=== PATIENT | female | born 1970 | race African-American/Black ===

== ENCOUNTER 2016-08-22 23:50 | Observation (INO) | payer BC ==
--- NOTE | ~2016-08-22 | HP ---
History And Physical [place] [address] [facility] [place]. [address] NAME: CHUY ALMONTE : 72 STATUS : ADM Deepak PAT#: [id number] AGE: 46 ADM/REG DATE : 08/22/16 MR#: [id number] REPORT SERV DATE: 08/23/16 DICTATED BY: MIRELA PATHAK DATE: 08/23/16 REPORT STATUS : Draft TRANSCRIBED BY: MODCandace DATE: 08/23/16 DATE OF ADMISSION: 08/22/2016 CHIEF COMPLAINT: Chest pain and dizziness. HISTORY OF PRESENT ILLNESS: A very pleasant 46-year-old black female with no known history of CAD, states that over the last couple of days, she has experienced some nagging left-arm pain on 08/22/2016. She felt "off" after having eaten breakfast at the [employer] that included three cups of coffee, a cheese steak [place] melt and hash browns. She did not feel herself most of the day. She experienced some dizziness and then, some chest pain on and off described as a tightness that radiated towards her left shoulder and down her left arm. She reports some associated nausea, dizziness, and belching. Denies shortness of breath or diaphoresis. The chest pain at its most intense was rated at 7/10. At the time of interview in the [facility], she is pain free. She states the episodes lasted seconds in duration, but would return, which were concerning to family and friends who insisted that she go to the emergency room for further evaluation. There is no clear pattern in her discomfort, no exertional component. She reports having had baked beans potatoes and riblets for dinner. Last night, her blood pressure checked by a friend was 160/90, which was concerning for her. The patient denies any personal history of myocardial infarction, stroke, DVT, or pulmonary embolus. Of note, two sons with cardiomyopathy followed at [facility]. The patient denies any recent fever or chills. No palpitations. No syncopal episodes. Denies PND or orthopnea. Sleeps on two pillows and consumes 6, 8-12 ounce cups of coffee per week. PAST MEDICAL HISTORY: 1. AL with followup with PCP on 08/29/2016. 2. Denies hypertension, dyslipidemia or diabetes. 3. A history of epilepsy with no recurrence since 2008. Previously on Dilantin. 4. Two sons with cardiomyopathy followed at [facility]. PAST SURGICAL HISTORY: 1. Right knee surgery x2, most recently March 2016. 2. . SOCIAL HISTORY: She is , with six children, unemployed. Does not have an exercise routine, although she recently completed physical therapy three times weekly at [facility] in June 2016. Denies tobacco or illicits. Occasionally consumes alcohol. FAMILY HISTORY: No embolic events reported in first-degree relatives. Mother with diabetes and dyslipidemia, alive at 62. Maternal grandmother with a stroke in her 70s, heart attack at 72, with CAD and stents in her 60s, alive at 78. REVIEW OF SYSTEMS: History And Physical [address] [address] NAME: CHUY ALMONTE : 72 STATUS : ADM Deepak PAT#: [id number] AGE: 46 ADM/REG DATE : 08/22/16 MR#: [id number] REPORT SERV DATE: 08/23/16 DICTATED BY: MIRELA PATHAK DATE: 08/23/16 REPORT STATUS : Draft TRANSCRIBED BY: ISH DATE: 08/23/16 A 14-point review of systems was performed significant for HPI including snores per report, with no formal sleep study. Otherwise, complete review of systems obtained and negative. ALLERGIES: ALLERGY TO PENICILLIN. HOME MEDICINES: ProAir p.r.n. and Motrin 800 mg three times daily, but has not needed recently. PHYSICAL EXAMINATION: BLOOD PRESSURE: 120/63, PULSE: 65, RESPIRATORY RATE: 18, TEMPERATURE: 98.5, O2 saturation 100% on room air. HEIGHT: 5 feet 2 inches, WEIGHT: No weight provided. GENERAL: Cooperative, in no apparent distress. HEENT: Pupils 2 mm, sclera nonicteric. Nares patent. Moist mucous membranes. No xanthelasma. NECK: Trachea midline. No thyromegaly. No JVD. No bruits. LYMPH: No cervical lymphadenopathy. No supraclavicular lymphadenopathy. RESPIRATORY: Unlabored respirations. Breath sounds clear bilaterally to posterior auscultation. No wheezes or rhonchi. CARDIOVASCULAR: Regular rate. No murmur, rub or gallop appreciated. Extremities, trace ankle edema. Pulses 2+ bilaterally. ABDOMEN: Soft, nontender, nondistended, normal bowel sounds auscultated throughout. No organomegaly. SKIN: Warm, dry extremities. No pallor or cyanosis. PSYCHIATRIC: Appropriate affect. Alert, oriented x3. LABORATORY DATA: Troponin less than 0.02 twice. Potassium 3.7, BUN 16, creatinine 1.01, glucose 107, magnesium 2.3. WBC is 6.0, hemoglobin 8.8, hematocrit 28.0, platelet count 259,000. D-dimer less than 0.27. EKG, sinus arrhythmia. ASSESSMENT AND PLAN: 1. Atypical chest pain in patient with a few if any risk factors. We will proceed with MPI today for risk stratification. The patient has been observed in the [facility] overnight to rule out myocardial infarction with serial enzymes and serial EKGs. N.p.o. for MPI today. The patient will be discharged home if low risk, no ischemia. If anything suggestive of ischemia, Cardiology referral will be initiated. Otherwise, the patient will be asked to follow up her PCP on 08/29/2016 as already scheduled. 2. Dizziness. Check echo. Check TSH. Orthostatics within normal limits. Two sons with cardiomyopathy. 3. Anemia. It has been suggested for the patient to take an iron supplement by previous PCP. Recently, had a lab work drawn at current PCP, Dr. Neumann's office. Has a followup scheduled for 08/29/2016. The patient has been instructed to keep that appointment. CLARE/ISH Mirela History And Physical [address] [address] NAME: CHUY ALMONTE : 72 STATUS : ADM Deepak PAT#: [id number] AGE: 46 ADM/REG DATE : 08/22/16 MR#: [id number] REPORT SERV DATE: 08/23/16 DICTATED BY: MIRELA PATHAK DATE: 08/23/16 REPORT STATUS : Draft TRANSCRIBED BY: MODL DATE: 08/23/16 DANYEL Pathak, VIDEO JOURNALIST-BC / [id number] CC: Mirela Pathak, MSN, VIDEO JOURNALIST-BC Jovana Villegas
[2016-08-22 23:24] LABS: BASOPHILS 0.3 %; BASOPHILS ABSOLUTE 0.02 10/3/uL (0.0-0.16); EOSINOPHILS 1.7 %; HEMOGLOBIN 8.8 g/dL (12.0-16.0); LYMPHOCYTES 48.4 %; LYMPHOCYTES ABSOLUTE 2.91 10/3/uL (0.67-4.30); MEAN CORPUS HGB CONC 31.4 g/dL (32.0-36.0); MEAN CORPUSCULAR HEMOGLOB 22.8 pg (26.0-34.0); MEAN PLATELET VOLUME 9.7 fL (9.2-13.0); MONOCYTES 5.8 %; MONOCYTES ABSOLUTE 0.35 10/3/uL (0.21-1.20); NEUTROPHILS 43.8 %; NEUTROPHILS ABSOLUTE 2.63 10/3/uL (2.02-8.40); PLATELET COUNT 259 10/3/uL (150-400); RBC DISTRIBUTION WIDTH 17.1 % (12.0-16.0); RED CELL COUNT 3.86 10/6/uL (4.0-5.6)
[2016-08-22 23:25] LABS: ER CBC TAT 0 Hrs 03 MinsNP; MANUAL DIFF NO %; MEAN CORPUSCULAR VOLUME 72.5 fL (80-100)
[2016-08-22 23:32] LABS: PARTIAL THROMBO TIME 32.3 SEC (22.5-37.2)
[2016-08-22 23:33] LABS: PROTIME (NOT ORD) 13.1 SEC (12.0-14.5)
[2016-08-22 23:49] LABS: BUN (BLOOD UREA NITROGEN) 16 MG/DL (6-23); CHEST PAIN PROFILE TAT 0 Hrs 28 Mins; CHLORIDE, SERUM 105 MMOL/L (96-112); CO2 (CARBON DIOXIDE) 28 MMOL/L (24-34); GFR AFRICAN AMERICAN 78 ML/MIN (>=60); GFR NON AFRICAN AMERICAN 67 ML/MIN (>=60); GLUCOSE, SERUM 107 MG/DL (60-99); POTASSIUM, SERUM 3.7 MMOL/L (3.5-5.3); SODIUM, SERUM 142 MMOL/L (135-148); TROPONIN I <0.02 NG/ML (<0.05)
[2016-08-22 23:53] LABS: CREATININE 1.01 MG/DL (0.55-1.02)
[2016-08-23 03:59] LABS: TROPONIN I <0.02 NG/ML (<0.05)
[2016-08-23] MEDS ORDERED: IBU800 PO (05:35)
[2016-08-23] MEDS ORDERED: PROAIR HFA INH (05:36)
[2016-08-23 12:53] LABS: FREE T4 1.08 NG/DL (0.76-1.46)
[2016-08-23] MEDS ORDERED: FERROUS SULF325 M1 PO (16:46)
== END 2016-08-23 17:06 | disposition home or self-care (01) ==
LOC: ER 23:50 → CDU1 23:59 → CDU2 08-23 05:18
PROVIDERS: Emergency Medicine; Nurse Practitioner Acute Care
DX: R07.89 Other chest pain (principal); R42 Dizziness and giddiness; D64.9 Anemia, unspecified; Z88.0 Allergy status to penicillin; Z79.899 Other long term (current) drug therapy
CPT/HCPCS: 71010; 78452; 80048; 83735; 84439; 84443; 84484; 85025; 85379; 85610; 85730; 93005; 93017; 93306; 96374; 99285; A9270-GY; A9502; G0378; J2405